=== PATIENT | male | born 1940 | race Caucasian/White ===

== ENCOUNTER 2022-06-02 14:54 | Observation (INO) | payer OTHER, MEDICARE ==
[2022-06-02 15:58] LABS: SARS-CoV-2 Antigen Rapid Res Negative (Negative)
[2022-06-02 16:35] VITALS: BMI 29.3
[2022-06-02] MEDS ORDERED: INFLUENZA VACCINE (for 6+ mo) 0.5 ML DOSE IMVAC ONE (18:00)
[2022-06-02] MEDS ORDERED: POLYETHYL GLY 3350 17 GM/DOSE PO PRN (18:00)
[2022-06-02] MEDS ORDERED: PNEUMOCOCCAL VACCINE 0.5 ML IMVAC ONE (18:00)
[2022-06-02] MEDS ORDERED: ONDANSETRON 4 MG/2 ML VIAL IV PRN (18:00)
[2022-06-02] MEDS ORDERED: ACETAMINOPHEN 325 MG TABLET PO PRN (18:00)
[2022-06-02] MEDS ORDERED: LOPERAMIDE HCL 2 MG CAPSULE PO PRN (18:00)
[2022-06-02] MEDS ORDERED: ONDANSETRON 4 MG (ODT) TAB PO PRN (18:00)
[2022-06-02] MEDS ORDERED: DIPHENHYDRAMINE 25 MG TAB/CAP PO PRN (18:00)
[2022-06-02] MEDS: NACHLORIDE 0.45% 1,000 ML IV SCH (18:05)
[2022-06-02] MEDS: VANCOMYCIN ORAL SOLN 250 MG/5 ML OSYR PO SCH ×2 (18:05→21:20)
[2022-06-02 18:28] LABS: Absolute Lymphocytes (CBC) 0.8 K/uL (0.7-4.9); Hematocrit 53.2 % (39.6-49.0); MPV 9.2 fL (7.6-11.3); RBC Red Blood Cell Count 5.84 M/uL (4.33-5.43)
[2022-06-02 18:30] LABS: White Blood Cell Scan OK (OK)
[2022-06-02 18:31] LABS: Blood Morphology Comment NOT SEEN (NOT SEEN); Platelet Estimate ADEQ
[2022-06-02 18:35] LABS: Protime INR 2.17
[2022-06-02 19:05] LABS: Albumin 2.7 g/dL (3.4-5.0); Bilirubin Direct 0.4 mg/dL (0-0.2); Bilirubin Total 0.9 mg/dL (0.2-1.0); Magnesium 1.7 mg/dL (1.6-2.4); Phosphorus 3.1 mg/dL (2.5-4.9); Potassium 3.6 mmol/L (3.5-5.1); Protein, Total 6.3 g/dL (6.4-8.2); Thyroid Stimulating Hormone 0.546 uIU/mL (0.358-3.740)
[2022-06-02] MEDS ORDERED: POTASSIUM CL SA 10 MEQ TAB PO ONE (21:00)
[2022-06-02] MEDS ORDERED: MAGNESIUM SULFATE 1 gm IVPB 1 GM/100 ML BAG IV ONE (21:00)
--- NOTE | 2022-06-02 21:27 | RAD REPORT ---
EXAM DESCRIPTION: Daniel Blair And Pawan (2 Views)06/02/2022 9:05 pm CLINICAL HISTORY: Chest pain COMPARISON: April 2022 FINDINGS: The lungs appear clear of acute infiltrate. The heart is normal size IMPRESSION: No acute abnormalities displayed
[2022-06-02 22:40] VITALS: O2SAT 96
[2022-06-03] MEDS: NACHLORIDE 0.45% 1,000 ML IV SCH ×2 (05:13→16:10)
[2022-06-03 06:11] LABS: Potassium 3.5 mmol/L (3.5-5.1)
[2022-06-03] MEDS: VENLAFAXINE HCL 75 MG TABLET PO SCH (08:07)
[2022-06-03] MEDS: ATORVASTATIN 20 MG TAB PO SCH (08:07)
[2022-06-03] MEDS: RIVAROXABAN 20 MG TABLET PO SCH (08:07)
[2022-06-03] MEDS: Tadalafil [Cialis] 5 MG Tablet PO SCH (08:08)
[2022-06-03] MEDS: JUVEN PACKET PO SCH ×2 (08:08→21:16)
[2022-06-03] MEDS: VANCOMYCIN ORAL SOLN 250 MG/5 ML OSYR PO SCH ×3 (08:09→16:10)
[2022-06-03] MEDS ORDERED: POTASSIUM CL SA 10 MEQ TAB PO ONE (09:00)
[2022-06-03 09:18] LABS: C.diff Antigen/Toxin Ag neg : Tox neg (NEG : NEG)
--- NOTE | 2022-06-03 10:10 | RAD REPORT ---
EXAM DESCRIPTION: CT - Abdomen Pelvis Wo Contrast - 06/03/2022 9:59 am CLINICAL HISTORY: Abdominal pain. Abdominal pain COMPARISON: Abdomen Pelvis W Contrast dated 04/29/2016; Cholangiogram dated 04/28/2022 TECHNIQUE: CT imaging of the abdomen and pelvis was performed without contrast. Solid organ and vasc ular assessment is limited due to lack of IV contrast. All CT scans are performed using dose optimization technique as appropriate and may include automated exposure control or mA/KV adjustment according to patient size. FINDINGS: Mild linear atelectasis in both lung bases. Subtle nodular contour affects the liver parenchyma with a shrunken liver size likely cirrhosis.The p ortal vein is enlarged and likely contains thrombus. Full assessment not possible due to lack IV cont rast. Splenomegaly is present. The pancreas adrenal glands and kidneys are within normal limits. Mild ascites is present. Mild colon wall thickening is present. The appendix is normal. Mild lumbar degenerative changes. IMPRESSION: Liver cirrhosis with splenomegaly and portal hypertension. Mild ascites is also present. Thrombus is suspected in the portal vein. Mild colon wall thickening is present which may represent portal colopathy. A limited non-contrast examination was performed as detailed.
[2022-06-04] MEDS: NACHLORIDE 0.45% 1,000 ML IV SCH ×2 (02:01)
[2022-06-04 04:39] LABS: Hematocrit 50.3 % (39.6-49.0); Lymphocytes % 8.7 % (15.3-44.8); MCV 90.7 fL (80-100); MPV 9.4 fL (7.6-11.3); RBC Red Blood Cell Count 5.54 M/uL (4.33-5.43)
[2022-06-04 05:07] LABS: Potassium 3.6 mmol/L (3.5-5.1)
[2022-06-04 08:56] VITALS: BP 114/55; TEMP 98.2
[2022-06-04] MEDS ORDERED: POTASSIUM CL SA 10 MEQ TAB PO ONE (09:00)
[2022-06-04] MEDS: Tadalafil [Cialis] 5 MG Tablet PO SCH (09:00)
[2022-06-04] MEDS: RIVAROXABAN 20 MG TABLET PO SCH (09:18)
[2022-06-04] MEDS: ATORVASTATIN 20 MG TAB PO SCH (09:18)
[2022-06-04] MEDS: VENLAFAXINE HCL 75 MG TABLET PO SCH (09:18)
[2022-06-04] MEDS: JUVEN PACKET PO SCH (09:18)
--- NOTE | 2022-06-05 17:30 | EKG ---
Test Date: 2022-06-02 Test Time: 18:49:02 Exhibition Designer: BINA MEASUREMENT RESULTS: Intervals: Rate: 70 WV: 136 QRSD: 172 QT: 490 QTc: 529 [place]: P: 64 WV: 136 QRS: -30 T: 107 INTERPRETIVE STATEMENTS: Normal sinus rhythm Left axis deviation Left bundle branch block Abnormal ECG Electronically Signed On 06-05-22 17:26:09 SURGICAL BRACE MAKER by Chris Becerril
== END 2022-06-04 12:32 | disposition home or self-care (01) ==
LOC: 4TH 16:15
PROVIDERS: ADMIT Internal Medicine; ATTEND Internal Medicine
DX: R10.9 Unspecified abdominal pain (principal); R19.7 Diarrhea, unspecified; R63.4 Abnormal weight loss; Z20.822 Contact with and (suspected) exposure to COVID-19
CPT/HCPCS: 93005; 87045; 85025 ×2; 80048 ×3; 36415 ×2; 83735 ×2; 87177; 84100; 85610; 80076; 87046; 85730; 82652; 87209; 84443; 87324; 82607; 74176; 71046; 97116; 97161; 87811; J3475; G0378; G0379

== ENCOUNTER 2022-08-13 01:26 | Emergency (ER) | payer OTHER, MEDICARE ==
[2022-08-13 01:56] LABS: Absolute Lymphocytes (CBC) 0.8 K/uL (0.7-4.9); Hematocrit 56.5 % (39.6-49.0); MCV 95.5 fL (80-100); MPV 8.9 fL (7.6-11.3); RBC Red Blood Cell Count 5.92 M/uL (4.33-5.43)
[2022-08-13 02:15] LABS: Albumin 2.8 g/dL (3.4-5.0); Bilirubin Total 1.2 mg/dL (0.2-1.0); Potassium 4.5 mmol/L (3.5-5.1); Protein, Total 6.7 g/dL (6.4-8.2); Troponin High Sensitivity 17.8 pg/mL (<58.9)
[2022-08-13 02:22] LABS: Anisocytosis 2+; Blood Morphology Comment NOTED (NOT SEEN); Macrocytosis 2+; Platelet Estimate ADEQ
[2022-08-13 02:23] LABS: Ovalocytes 2+; Teardrop Cell 1+
[2022-08-13 02:44] LABS: SARS-CoV-2 Antigen Rapid Res Negative (Negative)
[2022-08-13 03:07] LABS: Protime INR 2.25
[2022-08-13] MEDS ORDERED: PROTHROMBIN COMPLEX CONCENTRATE (HUMAN) 500 UNIT VIAL IV ONE (04:00)
--- NOTE | 2022-08-13 04:02 | ER ---
Nurse's Notes [facility] Name: Haile Ramey Age: 81 yrs Sex: Male : 1940 Arrival Date: 08/13/2022 Time: 01:27 Bed 4 Private MD: Diagnosis: Traumatic subdural hemorrhage Presentation: 08/13 01:39 Chief complaint: EMS states: Pt's stated that he was getting up to go to the the [facility] restroom and fell, hitting his right head and scraping hi right elbow. Pt is on blood thinners and has a history of dementia. Coronavirus screen: Vaccine status:. Ebola Screen: No symptoms or risks identified at this time. Initial Sepsis Screen: Does the patient meet any 2 criteria? No. Patient's initial sepsis screen is negative. Does the patient have a suspected source of infection? No. Patient's initial sepsis screen is negative. Risk Assessment: Do you want to hurt yourself or someone else? Patient reports no desire to harm self or others. Onset of symptoms was August 13, 2022. 01:39 Method Of Arrival: EMS: [facility] 3 01:39 Acuity: KE 3 kd3 01:40 Care prior to arrival: None. kd3 01:40 Mechanism of Injury: Fall from standing position. Trauma event details: Injury occurred kd3 in the [facility]. Triage Assessment: 01:41 General: Appears in no apparent distress. Behavior is calm. Pain: Complains of pain in kd3 right temporal area. Trauma Activation: Physician: ED Physician; Name: kelvin; Notified At: 01:40; Arrived At: 01:40 Physician: General Surgeon; Name: ; Notified At: 01:40; Arrived At: Physician: Radiology; Name: ; Notified At: 01:40; Arrived At: Physician: Respiratory; Name: ; Notified At: 01:40; Arrived At: Physician: Lab; Name: ; Notified At: 01:40; Arrived At: Historical: - Allergies: 01:45 codeine sulfate; kd3 - Immunization history:: Adult Immunizations up to date. - Social history:: Smoking status: unknown. - Immunization history: Last tetanus immunization: unknown. - Family history:: not pertinent, pertinent for. Screenin:40 Abuse screen: Denies threats or abuse. Denies injuries from another. Tuberculosis kd3 screening: No symptoms or risk factors identified. 01:[facility] Fall Risk Assessment (Adult) History of falling in the last 3 months, kd3 including since admission Yes- single mechanical fall (1 pt) Confusion or Disorientation Yes (5 pts) Intoxicated or Sedated No (0 pts) Impaired Gait Yes (1 pt) Mobility Assist Device Used Yes (1 pt) Altered Elimination Yes (1 pt) Score/Fall Risk Level 3 or more points = High Risk Maintained a safe environment, Educated pt \T\ family on fall prevention, incl call for assistance when getting out of bed, Hourly rounding (assess needs \T\ fall precautionary measures) done. Nutritional screening: On. Primary Survey: 01:40 NO uncontrolled hemorrhage observed. A: The client is awake and alert. The airway is kd3 patent. The client is alert. Breathing/Chest: Spontaneous respiratory effort, equal unlabored respirations, breath sounds clear bilaterally, regular pattern, symmetrical chest rise and fall. Circulation: No external hemorrhage present. Regular and strong central pulse, skin warm/dry/normal color. Disability Pupils are equal, round, reactive to light and accommodation. Exposure/Environment: All clothing and personal items were removed. Forensic evidence collection is not deemed to be indicated at this time. Items placed in patient belonging bag. There is no evidence of uncontrolled external bleeding. Obvious injury(ies) are noted at this time: right temporal hematoma, right elbow skin tear A warming method has been applied: A warm blanket has been provided to the patient. Reassessment. 04:46 Reassessment Alertness and Airway: Awake and alert. The airway is patent. Breathing: kd3 Spontaneous respiratory effort, equal unlabored respirations, breath sounds clear bilaterally, regular pattern with symmetrical chest rise and fall. Circulation: No external hemorrhage noted. Regular and strong central pulse, skin warm/dry/normal color. Disability: Pupils Pupils are equal, round, reactive to light and accomodation. Secondary Survey: 01:40 HEENT: Head Other right temporal area hematoma. Face No injury/deformity Eyes: No kd3 injury or deformity noted. to bilateral eyes. Ears: clear bilaterally. Nose: clear to bilateral nares. Throat: No injury or deformity noted. Gastrointestinal: No deficits noted. : No deficits noted. Musculoskeletal: No deficits noted. Assessment: 01:40 General: Appears in no apparent distress. Behavior is calm, cooperative. kd3 01:50 General: Appears in no apparent distress. Behavior is calm, cooperative. Pain: kd3 Complains of pain in face and right temporal area Neuro: Level of Consciousness is awake, alert, confused, patient appears to be at baseline . 01:50 Respiratory: Airway is patent Trachea midline Respiratory effort is even, unlabored, kd3 Respiratory pattern is regular, symmetrical. Injury Description: Head injury sustained to right temporal area Laceration sustained to right elbow. 02:01 General: pt right elbow cleaned with NS and wrapped with Coban and gauze. . kd3 02:20 Cardiovascular: Patient's skin is warm and dry. kd3 02:20 GI: Abdomen is non-distended. kd3 02:45 Reassessment: No changes from previously documented assessment. Patient and/or family the [facility] updated on plan of care and expected duration. Pain level reassessed. Patient is alert, oriented x 3, equal unlabored respirations, skin warm/dry/pink. 03:15 General: Appears uncomfortable, Behavior is agitated, anxious. kd3 03:15 Neuro: Level of Consciousness is awake, alert, confused. Respiratory: Airway is patent kd3 Trachea midline Respiratory effort is even, unlabored, Respiratory pattern is regular, symmetrical. 03:31 Reassessment: No changes from previously documented assessment. Patient and/or family the [facility] updated on plan of care and expected duration. Pain level reassessed. 04:45 General: This Rn contacted [facility] to confirm contact the [facility] person in order get permission to transfer the patient to [facility]. This RN contacted the daughter, Marnie Serrato, who notified this RN that the patient is a hospice patient and that she isn't sure that the patient should be transferred. Marnie Serrato would like to contact Dr Small in order to discuss what would be best for the patient. . 05:38 General: Notified Dr. Small of patient's daughter Marnie Serrato concerns and wanted to pf1 discuss further plan of care for patient. . 05:49 General: Per Dr. Small and Marnie Serrato, pt will be transferred back to [address] No further treatment for the patient's current condition. Pt will continue with Hospice care at [facility]. . 06:27 General: Pt transported back to [facility] via [facility]. kd3 Vital Signs: 01:39 BP 145 / 79; Pulse 76; Resp 19; Temp 98.4(O); Pulse Ox 97% on R/A; kd3 02:20 BP 124 / 71; Pulse 82; Resp 19; Pulse Ox 99% on R/A; kd3 02:45 Weight 53.98 kg; kd3 02:46 BP 129 / 68; Pulse 75; Resp 15; Pulse Ox 98% on R/A; kd3 03:15 BP 138 / 75; Pulse 91; Resp 18; Pulse Ox 98% ; kd3 04:36 BP 127 / 69; Pulse 82; Resp 17; Pulse Ox 99% on R/A; kd3 05:16 BP 125 / 72; Pulse 76; Resp 17; Pulse Ox 99% on R/A; kd3 [place] Coma Score: 01:40 Eye Response: spontaneous(4). Verbal Response: confused(4). Motor Response: obeys kd3 commands(6). Total: 14. Trauma Score (Adult): 01:40 Eye Response: spontaneous(1); Verbal Response: confused(1); Motor Response: obeys kd3 commands(2); Systolic BP: > 89 mm Hg(4); Respiratory Rate: 10 to 29 per min(4); [place] Score: 14; Trauma Score: 12 ED Course: 01:27 Patient arrived in ED. rv1 01:30 Grabiel Negron MD is Attending Physician. rt 01:39 Fanny Mckeon RN is Primary Nurse. kd3 01:40 Patient has correct armband on for positive identification. Bed in low position. kd3 01:40 Patient maintains SpO2 saturation greater than 95% on room air. kd3 01:41 Triage completed. kd3 01:41 Arm band placed on right wrist. kd3 01:50 Maintain EMS IV. Dressing intact. Good blood return noted. Site clean \T\ dry. kd3 01:58 Repositioned patient. Cleaned of incontinence. kd3 02:26 Initiated transfer to [facility]...was on hold for 2 hrs. wm 02:46 PT-INR Sent. kd3 02:46 Ptt, Activated Sent. kd3 03:31 Noise minimized. Lights dimmed. Repositioned patient. Cleaned of incontinence. kd3 04:05 Initiated for transfer to [facility]. wm 04:16 Pt accepted for transfer to [facility] ER by Nithin Curtis. wm 05:44 No provider procedures requiring assistance completed. kd3 06:29 IV discontinued, intact, bleeding controlled, No redness/swelling at site. Pressure kd3 dressing applied. 06:37 Thermoregulation: warm blanket given to patient. kd3 Administered Medications: 04:43 Drug: Kcentra 500 unit 25 units/kg Route: IV; Rate: calculated rate; Site: left 3 antecubital; 06:44 Follow up: Response: No adverse reaction; IV Status: Completed infusion kd3 Medication: 01:50 VIS not applicable for this client. kd3 Output: 06:37 Urine: 150ml (Voided); Total: 150ml. kd3 Outcome: 04:01 ER care complete, transfer ordered by MD. rt 06:04 Discharge ordered by MD. rt 06:36 Discharged to home via ambulance. kd3 06:36 Condition: stable 06:36 Discharge instructions given to patient, EMS, Instructed on discharge instructions, follow up and referral plans. Demonstrated understanding of instructions, follow-up care. 06:37 Patient's length of stay in the Emergency Department was greater than 2 hours. kd3 06:45 Patient left the ED. kd3 Signatures: Raquel Gonzalez Fanny Mckeon RN RN kd3 Grabiel Negron MD MD rt Dalila foote RN RN pf1 Macie Campos rv1 Corrections: (The following items were deleted from the chart) 01:47 01:41 Allergies: No Known Allergies; kd3 kd3 04:05 02:26 Initiated transfer to [facility] 06:33 05:49 General: Per Dr. Small and Marnie Serrato, pt will be transferred back to [address] No further treatment for the patient's current condition. . kd3 06:36 05:44 Maintain EMS IV. Dressing intact. Good blood return noted. Site clean \T\ dry. kd3 kd3
--- NOTE | 2022-08-13 04:02 | EDPHYS ---
Physician Documentation [facility] Name: Haile Ramey Age: 81 yrs Sex: Male : 1940 Arrival Date: 08/13/2022 Time: 01:27 Bed 4 Private MD: ED Physician Grabiel Negron HPI: 08/13 01:42 This 81 yrs old Male presents to ER via EMS with complaints of Fall, head injury. rt 01:42 Unable to obtain HPI due to baseline dementia. Patient presents to the ED from nursing rt home with an unwitnessed fall. History obtained mostly per EMS. He states that he is on Xarelto, hit his head. Patient cannot recall the circumstances surrounding the fall. Other than pain around any of the hematoma, denies any other pain at this time. Symptoms are moderate severity, no other aggravating or alleviating factors.. Historical: - Allergies: 01:45 codeine sulfate; kd3 - Immunization history:: Adult Immunizations up to date. - Social history:: Smoking status: unknown. - Immunization history: Last tetanus immunization: unknown. - Family history:: not pertinent, pertinent for. ROS: 01:42 Neuro: Positive for headache, Negative for altered mental status. rt 01:42 Unable to obtain ROS due to baseline dementia. Exam: 01:42 Constitutional: This is a well developed, well nourished patient who is awake, alert, rt and in no acute distress. Neck: Trachea midline, no thyromegaly or masses palpated, and no cervical lymphadenopathy. Supple, full range of motion without nuchal rigidity, or vertebral point tenderness. No Meningismus. Chest/axilla: Normal chest wall appearance and motion. Nontender with no deformity. No lesions are appreciated. Cardiovascular: Regular rate and rhythm with a normal S1 and S2. No gallops, murmurs, or rubs. Normal PMI, no JVD. No pulse deficits. Respiratory: Lungs have equal breath sounds bilaterally, clear to auscultation and percussion. No rales, rhonchi or wheezes noted. No increased work of breathing, no retractions or nasal flaring. Abdomen/GI: Soft, non-tender, with normal bowel sounds. No distension or tympany. No guarding or rebound. No evidence of tenderness throughout. MS/ Extremity: Pulses equal, no cyanosis. Neurovascular intact. Full, normal range of motion. 01:42 Head/face: Hematoma noted to the right parietal region, no lacerations, no other evidence of trauma.. 02:06 ECG was reviewed by the Attending Physician. rt Vital Signs: 01:39 BP 145 / 79; Pulse 76; Resp 19; Temp 98.4(O); Pulse Ox 97% on R/A; kd3 02:20 BP 124 / 71; Pulse 82; Resp 19; Pulse Ox 99% on R/A; kd3 02:45 Weight 53.98 kg; kd3 02:46 BP 129 / 68; Pulse 75; Resp 15; Pulse Ox 98% on R/A; kd3 03:15 BP 138 / 75; Pulse 91; Resp 18; Pulse Ox 98% ; kd3 04:36 BP 127 / 69; Pulse 82; Resp 17; Pulse Ox 99% on R/A; kd3 05:16 BP 125 / 72; Pulse 76; Resp 17; Pulse Ox 99% on R/A; kd3 [place] Coma Score: 01:40 Eye Response: spontaneous(4). Verbal Response: confused(4). Motor Response: obeys kd3 commands(6). Total: 14. Trauma Score (Adult): 01:40 Eye Response: spontaneous(1); Verbal Response: confused(1); Motor Response: obeys kd3 commands(2); Systolic BP: > 89 mm Hg(4); Respiratory Rate: 10 to 29 per min(4); [place] Score: 14; Trauma Score: 12 MDM: 01:33 Patient medically screened. rt 04:48 Differential diagnosis: Contusion of Intracranial bleed- Concussion. Data reviewed: rt vital signs, nurses notes, lab test result(s), EKG, radiologic studies. Consideration of Admission/Observation Patient requires transfer for higher level of care. Management of patient was discussed with the following: Dredge Pipe Installer: Discussed with accepting trauma surgeon. I considered the following discharge prescriptions or medication management in the emergency department Medications were administered in the Emergency Department. See MAR. Independent interpretation of the following test(s) in the Emergency Department CT Scan: My interpretation is Subdural hemorrhage seen on my interpretation of the CT images. Care significantly affected by the following chronic conditions: Anticoagulant use. Counseling: I had a detailed discussion with the patient and/or guardian regarding: the historical points, exam findings, and any diagnostic results supporting the discharge/admit diagnosis, radiology results, the need to transfer to another facility, for higher level of care, [facility] does not immediately have the required specialist. 06:08 ED course: After transfer was accepted, I was informed that the patient is currently on rt hospice. The patient's primary care provider had a discussion with the family, at that point, the decision was made that the patient would not benefit from rescinding hospice and transfer, decision was made to discharge patient back to [facility] remaining on hospice.. 08/13 01:30 Order name: CT Head C Spine rt 08/13 01:30 Order name: CBC with Diff rt 08/13 01:30 Order name: CMP rt 08/13 01:30 Order name: Troponin High Sensitivity rt 08/13 01:30 Order name: EKG; Complete Time: 01:31 rt 08/13 01:30 Order name: EKG - Nurse/Tech; Complete Time: 02:02 rt 08/13 01:42 Order name: Type And Screen kd3 08/13 01:59 Order name: CBC with Automated Diff; Complete Time: 02:27 EDMS 08/13 02:15 Order name: Comprehensive Metabolic Panel; Complete Time: 02:27 EDMS 08/13 02:15 Order name: Troponin High Sensitivity; Complete Time: 02:27 EDMS 08/13 02:23 Order name: Manual Differential; Complete Time: 02:27 EDMS 08/13 02:25 Order name: SARS-COV-2 Antigen Rapid wm 08/13 02:27 Order name: PT-INR rt 08/13 02:27 Order name: Ptt, Activated rt 08/13 02:43 Order name: Type and Screen; Complete Time: 04:13 EDMS 08/13 02:44 Order name: SARS-COV-2 Antigen Rapid; Complete Time: 04:13 EDMS 08/13 03:08 Order name: PTT, Activated Partial Thromb; Complete Time: 04:13 EDMS 08/13 03:08 Order name: Protime (+INR); Complete Time: 04:13 EDMS 08/13 03:08 Order name: ABO/RH no charge; Complete Time: 04:13 EDMS EC:06 Rate is 73 beats/min. Rhythm is regular, Normal Sinus Rhythm with Left bundle branch rt block. DE interval is normal. QRS interval is normal. QT interval is normal. No Q waves. Administered Medications: 04:43 Drug: Kcentra 500 unit 25 units/kg Route: IV; Rate: calculated rate; Site: left kd3 antecubital; 06:44 Follow up: Response: No adverse reaction; IV Status: Completed infusion kd3 Disposition Summary: 08/13/22 06:04 Discharge Ordered Location: Long-Term rt Problem: new(08/13/22 06:04) rt Symptoms: are unchanged(08/13/22 06:04) rt Condition: Fair(08/13/22 06:04) rt Diagnosis - Traumatic subdural hemorrhage(08/13/22 06:04) rt Followup: rt - With: Private Physician - When: 2 - 3 days - Reason: Discharge Instructions: - Discharge Summary Sheet rt - Subdural Hematoma rt Forms: - Medication Reconciliation Form rt - Thank You Letter rt - Antibiotic Education rt - Prescription Opioid Use rt Critical care time excluding procedures: 04:48 Critical care time: Bedside Care: 30 minutes, Consultation: 10 minutes. Total time: 40 rt minutes Signatures: Dispatcher [employer] Fanny Leiva RN RN kd3 Grabiel Negron MD MD rt Corrections: (The following items were deleted from the chart) 01:47 01:41 Allergies: No Known Allergies; kd3 kd3 04:25 04:01 MD rt rt 04:25 04:01 [facility] rt rt 06:04 04:01 Higher level of care rt rt 06:04 04:01 Serious rt rt 06:04 04:01 new rt rt 06:04 04:01 are unchanged rt rt 06:04 04:01 Traumatic subdural hemorrhage rt rt 06:04 04:25 Dr. Mei rt rt 06:04 04:25 [facility]-System rt rt
[2022-08-13 06:56] VITALS: TEMP 98.4
[2022-08-13 07:01] VITALS: O2SAT 99
[2022-08-13 07:02] VITALS: BP 125/72
--- NOTE | 2022-08-13 10:04 | RAD REPORT ---
EXAM DESCRIPTION: CT - Head C Spine Mpr Wo Con - 08/13/2022 6:18 am CLINICAL HISTORY: 81 years Male TRAUMA TECHNIQUE: Multiple axial CT images of the brain and cervical spine were performed followed by sagit jesus alberto and coronal reconstructed images. The CT study is performed according to ALARA (as low as reasona alice achievable) or ALARA/IMAGE GENTLY, with automatic adjustment of mA and/or kV according to patient size. Performed on: 08/13/2022 at 1:48 AM COMPARISON: None. FINDINGS: CT HEAD: There is no evidence of mass or midline shift. There is a 6 mm subdural hematoma over the left cere bral convexity with local mass effect. There may be trace subdural blood along the left cerebellar te ntorium. No additional acute intracranial hemorrhage is appreciated. The cerebral sulci and ventricles are prominent consistent with mild to moderate cerebral volume loss . There are scattered areas of decreased attenuation within the subcortical and periventricular white m atter most likely due to mild chronic microangiopathy. There is no significant mucosal thickening of the paranasal sinuses. The mastoid air cells are clear. The orbital contents are grossly unremarkable. No acute osseous abnormalities are identified. There is a nonaggressive lytic lesion within the right parietal bone measuring approximately 0.9 x 0.5 cm in cross-sectional diameter. There is right frontoparietal scalp soft tissue swelling. CT CERVICAL SPINE: The cervical vertebrae are normal in height. There is normal alignment of the vertebrae. There is mod erate to marked disc space narrowing C5-C6 and mild to moderate disc space narrowing at C6-C7 and C7- T1 as well as T2-T3. There is mild degenerative spondylosis of the vertebral endplates at these level s. Bone mineralization is normal. The atlanto-axial articulation is preserved and the odontoid pro cess is intact. There is normal alignment of the facet joints on the parasagittal images. There are moderate degenera tive changes of the facet joints. There is no evidence of acute fracture or subluxation. There is mild C5-C6 canal stenosis secondary t o a disc osteophyte complex. There is multilevel neural foraminal stenosis secondary to uncovertebr al joint and facet joint hypertrophy. The prevertebral and paraspinal soft tissues are unremarkable. The lung apices are clear. IMPRESSION: CT HEAD: 1. There is a 6 mm subdural hematoma over the left cerebral convexity with local mass effect but no evidence of midline shift. There may be trace subdural blood along the left cerebellar tentorium. 2. Mild to moderate cerebral volume loss with findings compatible with chronic microangiopathy. 3. Right frontoparietal scalp soft tissue swelling. 4. CT CERVICAL SPINE: 1. No evidence of acute cervical spine injury. 2. Degenerative changes of the cervical spine as described above. These critical findings were discussed with Dr. Negron on 08/13/2022 at 2:18 AM central time. Electronically signed by: Carla Almonte DO 08/13/2022 2:20 AM [facility] Due to temporary technical issues with the PACS/Fluency reporting system, reports are being signed by the in house radiologists without review as a courtesy to insure prompt reporting. The interpreting radiologist is fully responsible for the content of the report.
--- NOTE | 2022-08-13 14:28 | EKG ---
Test Date: 2022-08-13 Test Time: 02:00:41 Band Straightener: YUE MEASUREMENT RESULTS: Intervals: Rate: 73 MA: 204 QRSD: 150 QT: 456 QTc: 502 [place]: P: 59 MA: 204 QRS: -31 T: 99 INTERPRETIVE STATEMENTS: Normal sinus rhythm Left axis deviation Left bundle branch block Abnormal ECG Compared to ECG 06/02/2022 18:49:02 No significant changes Electronically Signed On 08-13-22 14:28:03 CABLE TOWER OPERATOR by Chris Becerril
== END 2022-08-13 06:45 ==
LOC: ER 01:26
DX: S06.5X0A Traumatic subdural hemorrhage without loss of consciousness, initial encounter (principal); Z20.822 Contact with and (suspected) exposure to COVID-19; Z88.5 Allergy status to narcotic agent
CPT/HCPCS: 96365; 93005; 85025; 36415; 86900; 86850; 85610; 86901; 85730; 84484; 80053; 70450; 72125; 99284; 96366; 87811; J7168